=== PATIENT | male | born 1990 | race Caucasian/White ===

== ENCOUNTER 2016-10-09 14:58 | Emergency (ER) | payer SELFPAY ==
[~2016-10-09] VITALS: Ht 182.9 cm; Wt 93.0 kg
[~2016-10-09 14:58] MED LIST: ULTRAM50 MG PO
[2016-10-09 15:14] VITALS: BP 148/82
[2016-10-09] MEDS ORDERED: KETOROLAC 60 MG/2 ML VIAL IM ONE (16:55)
--- NOTE | 2016-10-09 17:00 | NUR ---
Pt taken to bed 7.
[2016-10-09] MEDS ORDERED: MORPHINE SULFATE 4 MG/ML SYR IM ONE (17:10)
--- NOTE | 2016-10-09 17:11 | NUR ---
DR. PATE MADE AWARE OF ALLERGY TO IBUPROFEN. PT STATES HE BREAKS OUT INTO A RASH, HIVES AND THROAT CLOSES UP. DR. PATE MADE AWARE. PT ALSO STATES HE RECEIVED TORADOL IN IRAG AND ALSO BROKE OUT IN A RASH. DR. PATE STATES HE WILL CANCEL THE TORADOL.
--- NOTE | 2016-10-09 17:21 | NUR ---
26/M presents to ED for evaluation of left shoulder pain s/p fall on Monday, 2 days ago. Pt was seen in Urgent Care. Pt with a sling in placed to left shoulder, c/o 8/10 pain. AAOX4.
[2016-10-09 17:49] VITALS: BP 138/97
--- NOTE | 2016-10-09 17:50 | NUR ---
Chart checked and completed. The patient's care was reviewed and supervised by Ron Torres RN.
== END 2016-10-09 17:50 | disposition home or self-care (01) ==
LOC: MED 14:58
DX: S40.012A Contusion of left shoulder, initial encounter (principal); R03.0 Elevated blood-pressure reading, without diagnosis of hypertension; Z88.1 Allergy status to other antibiotic agents; Z88.5 Allergy status to narcotic agent; Z88.6 Allergy status to analgesic agent; W11.XXXA Fall on and from ladder, initial encounter; Y93.89 Activity, other specified; Y92.89 Other specified places as the place of occurrence of the external cause; Y99.8 Other external cause status
CPT/HCPCS: 73030; 96372; 99284; J1885; J2270

== ENCOUNTER 2016-12-02 21:54 | Emergency (ER) | payer SELFPAY ==
[~2016-12-02] VITALS: Ht 182.9 cm; Wt 95.3 kg
[~2016-12-02 21:54] MED LIST changes: +TRAM50TA94 PO; -ULTRAM50 MG PO
[2016-12-02 22:03] VITALS: BP 139/90
--- NOTE | 2016-12-02 22:39 | NUR ---
PT TAKEN TO [facility] FROM [facility]
--- NOTE | 2016-12-02 22:51 | NUR ---
PT RETURN FROM XRAY TO LOBBY
--- NOTE | 2016-12-03 00:42 | NUR ---
PT TAKEN TO BED 7
--- NOTE | 2016-12-03 00:53 | NUR ---
Dr. Doss evaluating patient at bedside.
[2016-12-03] MEDS ORDERED: HYDROcodone/APAP 5/325 MG 1 TAB TAB PO ONE (00:55)
--- NOTE | 2016-12-03 01:07 | NUR ---
26Y M CAME TO ER C/O OF LOW BACK PAIN. STATES THE PAIN STARTED WHEN HE BEND OVER AT WORK. PT W/ HX OF HERNIATED DISK. V/S STABLE.
[2016-12-03 01:19] VITALS: BP 112/61
--- NOTE | 2016-12-03 01:19 | NUR ---
Patient discharged with v/s stable. Written and verbal after care instructions given and explained. Patient alert, oriented and verbalized understanding of instructions. Ambulatory with steady gait. All questions addressed prior to discharge. ID band removed. Patient advised to follow up with PMD. Rx of Tramadol and Flexeril given. Patient educated on indication of medication including possible reaction and side effects. Opportunity to ask questions provided and answered.
== END 2016-12-03 01:19 | disposition home or self-care (01) ==
LOC: MED 21:58
DX: S39.012A Strain of muscle, fascia and tendon of lower back, initial encounter (principal); R03.0 Elevated blood-pressure reading, without diagnosis of hypertension; X58.XXXA Exposure to other specified factors, initial encounter; Y93.89 Activity, other specified; Y92.89 Other specified places as the place of occurrence of the external cause; Y99.8 Other external cause status; Z88.6 Allergy status to analgesic agent; Z88.5 Allergy status to narcotic agent
CPT/HCPCS: 72100; 99284

== ENCOUNTER 2020-02-01 13:16 | Emergency (ER) | payer OTHER ==
[~2020-02-01] VITALS: Ht 182.9 cm; Wt 80.7 kg
[~2020-02-01 13:16] MED LIST changes: +TRAM50TA1 PO; -TRAM50TA94 PO
[2020-02-01 13:25] VITALS: BP 134/78
[2020-02-01] MEDS ORDERED: HYDROcodone/APAP 5/325 MG 1 TAB TAB PO ONE (14:00)
--- NOTE | 2020-02-01 14:05 | NUR ---
PT TAKEN TO RAD VIA WHEELCHAIR
--- NOTE | 2020-02-01 14:17 | NUR ---
29/M presents to ED with complaints of lower back pain x2 days s/p playing soccer. Patient denies any injury or trauma but states the pain worsened today. Pt describes an aching, non radiating, 8/10 pain to lower back. Patient ambulates with steady gait. Pt states he has an appt to see his PCP on 02/07/2020 but pain worsened today.
--- NOTE | 2020-02-01 14:19 | NUR ---
Patient returned from x-ray and placed back in bed 12.
--- NOTE | 2020-02-01 14:19 | NUR ---
PT RETURNED FROM XR VIA WHEELCHAIR AND TAKEN TO BED 12.
[2020-02-01 14:40] VITALS: BP 128/75
--- NOTE | 2020-02-01 14:40 | NUR ---
Patient discharged with v/s stable. Written and verbal after care instructions given and explained. Patient alert, oriented and verbalized understanding of instructions. Ambulatory with steady gait. All questions addressed prior to discharge. ID band removed. Patient advised to follow up with PMD. Rx of Lidoderm and [place] given. Patient educated on indication of medication including possible reaction and side effects. Opportunity to ask questions provided and answered.
== END 2020-02-01 14:40 | disposition home or self-care (01) ==
LOC: MED 13:16
DX: S39.012A Strain of muscle, fascia and tendon of lower back, initial encounter (principal); Z88.0 Allergy status to penicillin; Z88.5 Allergy status to narcotic agent; Z88.6 Allergy status to analgesic agent; Z88.8 Allergy status to other drugs, medicaments and biological substances; Z79.899 Other long term (current) drug therapy; W01.0XXA Fall on same level from slipping, tripping and stumbling without subsequent striking against object, initial encounter; Y93.89 Activity, other specified; Y92.89 Other specified places as the place of occurrence of the external cause; Y99.8 Other external cause status
CPT/HCPCS: 72100; 99283

== ENCOUNTER 2021-03-05 07:31 | Emergency (ER) | payer OTHER ==
[~2021-03-05] VITALS: Ht 182.9 cm; Wt 86.6 kg
[2021-03-05 07:35] VITALS: BP 138/79
[2021-03-05] MEDS ORDERED: KETOROLAC 30 MG/ML VIAL IM ONE (08:15)
[2021-03-05] MEDS ORDERED: ACET-8386 PO (08:16)
[2021-03-05] MEDS ORDERED: NAPR-54 PO (08:16)
[2021-03-05 08:43] VITALS: BP 138/79
== END 2021-03-05 08:43 | disposition home or self-care (01) ==
LOC: MED 07:31
DX: M54.5 Low back pain (principal); Z88.6 Allergy status to analgesic agent; Z88.0 Allergy status to penicillin; Z88.5 Allergy status to narcotic agent; Z79.899 Other long term (current) drug therapy
CPT/HCPCS: 99283